=== PATIENT | female | born 1950 | race Caucasian/White ===

== ENCOUNTER → 2017-12-11 | Outpatient (CLI) | payer OTHER, BC ==
[~2017-12-11] VITALS: Ht 157.5 cm; Wt 62.0 kg
[~2017-12-11] MED LIST: ASPIR 8181 M1 PO; CALCIUM 600 +1 EA16 PO; RANITIDINE HCL300 M1 PO; TYLENOL EXTRA500 MG PO
[2017-12-11 13:47] VITALS: BP 117/68
== END | disposition home or self-care (01) ==
LOC: IVINF 13:30
DX: M81.0 Age-related osteoporosis without current pathological fracture (principal)
CPT/HCPCS: J3489